=== PATIENT | female | born 2000 | race Caucasian/White ===

== ENCOUNTER 2020-11-30 14:51 | Emergency (ER) | payer SELFPAY ==
[~2020-11-30] VITALS: Ht 160 cm; Wt 69.9 kg
[2020-11-30 14:55] VITALS: BP 114/76
[2020-11-30] MEDS ORDERED: CEFTRIAXONE 1,000 MG IM ONE (15:30)
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
--- NOTE | 2020-11-30 15:50 | NUR ---
This RN at bedside to witness pelic exam.
[2020-11-30 16:27] LABS: CLUE CELLS NONE SEEN (NONE SEEN)
[2020-11-30 16:28] LABS: WET PREP WBCS NONE SEEN (FEW)
[2020-11-30 16:30] LABS: HCG UR SG 1.029 (1.003-1.030)
[2020-11-30 16:34] LABS: MICROSCOPIC INDICATED
[2020-11-30] MEDS ORDERED: CEFTRIAXONE 1,000 MG ONE (16:38)
[2020-11-30] MEDS ORDERED: LIDOCAINE-MPF 1%, 2ML ONE (16:39)
== END 2020-11-30 17:17 | disposition home or self-care (01) ==
LOC: ED 17:00
DX: N76.0 Acute vaginitis (principal); R30.0 Dysuria
CPT/HCPCS: 81001; 81025; 87086; 87210; 87491; 87591; 87808; 96372; 99284; J0696